=== PATIENT | female | born 1970 | race Caucasian/White ===

== ENCOUNTER 2017-03-16 11:04 | Observation (INO) | payer BC ==
[~2017-03-16 11:04] MED LIST: DEXAMETHASONE SOD PHOSPHATE INJ 4 MG/1 ML VIAL ONE; GLYCOPYRROLATE INJ 0.4 MG/2 ML VIAL ONE; LIDOCAINE 2% INJ-PF (20 MG/ML) 2 ML AMPUL ONE; NEOSTIGMINE METHYLSULFATE 10 MG/10 ML VIAL ONE; ONDANSETRON HCL INJ/PF 4 MG/2 ML SDV ONE; ROCURONIUM BROMIDE INJ 50 MG/5 ML VIAL IV ONE; SUCCINYLCHOLINE CHLORIDE INJ 200 MG/10 ML VIAL ONE
[2017-03-16] MEDS ORDERED: NORMAL SALINE 1000 ML 1,000 ML IV ONE (11:51)
[2017-03-16] MEDS ORDERED: ONDANSETRON HCL INJ/PF 4 MG/2 ML SDV IV ONE ×2 (11:52→13:27)
[2017-03-16] MEDS ORDERED: MORPHINE SULFATE 10 MG/ML INJ IV ONE (11:52)
--- NOTE | 2017-03-16 11:52 | ER Document Report ---
ED Medical Screen (RME) - General Chief Complaint: Abdominal Pain Stated Complaint: ABDOMINAL PAIN Time Seen by Provider: 03/16/17 11:51 Notes: Patient with severe right lower quadrant pain since yesterday. Nausea but no vomiting. No diarrhea. She has had decreased appetite. No previous abdominal surgeries except for a bilateral oophorectomy. TRAVEL OUTSIDE OF THE [place] IN LAST 30 DAYS: No - Related Data Allergies/Adverse Reactions: codeine Allergy (Verified 03/16/17 11:08) Physical Exam - Vital signs Vitals: Temp Pulse Resp BP Pulse Ox 97.4 F 75 14 127/73 H 100 03/16/17 11:17 03/16/17 11:17 03/16/17 11:17 03/16/17 11:17 03/16/17 11:17 Course - Vital Signs Vital signs: Temp Pulse Resp BP Pulse Ox 97.4 F 75 14 127/73 H 100 03/16/17 11:17 03/16/17 11:17 03/16/17 11:17 03/16/17 11:17 03/16/17 11:17
[2017-03-16 12:32] LABS: HEMATOCRIT 47.5 % (36.0-47.0); HEMOGLOBIN 16.6 g/dL (12.0-15.5); MEAN CORPUSCULAR HEMOGLOBIN 31.7 pg (27.0-33.4); MEAN CORPUSCULAR HGB CONC 34.9 g/dL (32.0-36.0); MEAN CORPUSCULAR VOLUME 91 fl (80-97); PLATELET COUNT 314 10^3/uL (150-450); RED BLOOD COUNT 5.23 10^6/uL (3.72-5.28)
[2017-03-16 12:46] LABS: APPEARANCE,URINE SLIGHTLY-CLOUDY; BILIRUBIN,URINE NEGATIVE (NEGATIVE); COLOR,URINE YELLOW; GLUCOSE, URINE NEGATIVE (NEGATIVE); KETONES,URINE 20 mg/dL (NEGATIVE); LEUKOCYTE ESTERASE,URINE SMALL (NEGATIVE); NITRITE,URINE NEGATIVE (NEGATIVE); PROTEIN,URINE 30 mg/dL (NEGATIVE); URINE SPECIFIC GRAVITY 1.029; UROBILINOGEN,URINE NEGATIVE mg/dL (<2.0)
[2017-03-16 12:56] LABS: ABSOLUTE LYMPHOCYTES# (MANUAL) 0.5 10^3/uL (0.5-4.7); ABSOLUTE MONOCYTES # (MANUAL) 1.3 10^3/uL (0.1-1.4); ABSOLUTE NEUTROPHILS# (MANUAL) 23.3 10^3/uL (1.7-8.2); BAND NEUTROPHILS % (MANUAL) 1 % (3-5); BASOPHILS % (MANUAL) 0 % (0-2); EOSINOPHILS % (MANUAL) 0 % (0-6); LYMPHOCYTES % (MANUAL) 2 % (13-45); MONOCYTES % (MANUAL) 5 % (3-13); SEGMENTED NEUTROPHILS % (MAN) 92 % (42-78); TOTAL CELLS COUNTED 100
[2017-03-16 12:57] LABS: PLATELET COMMENT ADEQUATE; RBC MORPHOLOGY COMMENT NORMO-CYTIC/CHROMIC
[2017-03-16 12:58] LABS: ALANINE AMINOTRANSFERASE 33 U/L (9-52); ALKALINE PHOSPHATASE 75 U/L (38-126); ANION GAP 17 (5-19); ASPARTATE AMINO TRANSFERASE 23 U/L (14-36); BILIRUBIN,DIRECT 0.2 mg/dL (0.0-0.4); BILIRUBIN,TOTAL 0.9 mg/dL (0.2-1.3); BLOOD UREA NITROGEN 14 mg/dL (7-20); CARBON DIOXIDE 23 mmol/L (22-30); CHLORIDE 101 mmol/L (98-107); GLUCOSE 116 mg/dL (75-110); LIPASE 31.1 U/L (23-300); POTASSIUM 4.2 mmol/L (3.6-5.0); SODIUM 140.5 mmol/L (137-145); TOTAL PROTEIN 8.4 g/dL (6.3-8.2)
--- NOTE | 2017-03-16 13:19 | ER Document Report ---
ED GI/ - General Chief Complaint: Abdominal Pain Stated Complaint: ABDOMINAL PAIN Time Seen by Provider: 03/16/17 11:51 Notes: The patient is a 46-year-old female, past medical history bilateral oophorectomy , diverticulitis 2 years ago, hypothyroidism, presents with 3 days of periumbilical pain now radiating to her right lower quadrant. She is also having nausea, but has not vomited. She denies fevers, hematuria, dysuria diarrhea, constipation, rash or vaginal discharge. TRAVEL OUTSIDE OF THE [place] IN LAST 30 DAYS: No - Related Data Allergies/Adverse Reactions: codeine Allergy (Verified 03/16/17 11:08) Past Medical History - General Information source: Patient - Social History Smoking Status: Current Some Day Smoker Chew tobacco use (# tins/day): No Frequency of alcohol use: Occasional Drug Abuse: None Family History: Reviewed & Not Pertinent Patient has suicidal ideation: No Patient has homicidal ideation: No Renal/ Medical History: Denies: Hx Peritoneal Dialysis Review of Systems - Review of Systems Notes: REVIEW OF SYSTEMS: CONSTITUTIONAL: -fevers, -chills EENT: -eye pain, -difficulty swallowing, -nasal congestion CARDIOVASCULAR: -chest pain, -syncope. RESPIRATORY: -cough, -SOB GASTROINTESTINAL: +abdominal pain, +nausea, -vomiting, -diarrhea GENITOURINARY: -dysuria, -hematuria MUSCULOSKELETAL: -back pain, -neck pain SKIN: -rash or skin lesions. HEMATOLOGIC: -easy bruising or bleeding. LYMPHATIC: -swollen, enlarged glands. NEUROLOGICAL: -altered mental status or loss of consciousness, -headache, - neurologic symptoms PSYCHIATRIC: -anxiety, -depression. ALL OTHER SYSTEMS REVIEWED AND NEGATIVE. Physical Exam - Vital signs Vitals: Temp Pulse Resp BP Pulse Ox 97.4 F 75 14 127/73 H 100 03/16/17 11:17 03/16/17 11:17 03/16/17 11:17 03/16/17 11:17 03/16/17 11:17 - Notes Notes: PHYSICAL EXAMINATION: GENERAL: Well-appearing, well-nourished and in no acute distress. HEAD: Atraumatic, normocephalic. EYES: Pupils equal round and reactive to light, extraocular movements intact, sclera anicteric, conjunctiva are normal. ENT: nares patent, oropharynx clear without exudates. Moist mucous membranes. NECK: Normal range of motion, supple without lymphadenopathy LUNGS: Breath sounds clear to auscultation bilaterally and equal. No wheezes rales or rhonchi. HEART: Regular rate and rhythm without murmurs ABDOMEN: Soft, moderate RLQ and periumbilical tenderness, normoactive bowel sounds. No guarding, no rebound. No masses appreciated. EXTREMITIES: Normal range of motion, no pitting or edema. No cyanosis. NEUROLOGICAL: Cranial nerves grossly intact. Normal speech, normal gait. Normal sensory and motor exams. PSYCH: Normal mood, normal affect. SKIN: Warm, Dry, normal turgor, no rashes or lesions noted. Course - Re-evaluation Re-evalutation: 46-year-old with 3 days of worsening periumbilical pain now radiating to right lower quadrant. She has a leukocytosis of 25 and nausea. Concern for appendicitis and CT abdomen pelvis obtained. 03/16/17 14:06 CT shows acute appendicitis. Spoke to Dr. Nath and he will be down to see patient. Unasyn started. - Vital Signs Vital signs: Temp Pulse Resp BP Pulse Ox 97.4 F 75 14 127/73 H 100 03/16/17 11:17 03/16/17 11:17 03/16/17 11:17 03/16/17 11:17 03/16/17 11:17 - Laboratory Result Diagrams: 03/16/17 12:15 03/16/17 12:15 Laboratory results interpreted by me: 03/16/17 03/16/17 03/16/17 12:15 12:15 12:15 WBC 25.0 H Hgb 16.6 H Hct 47.5 H Seg Neuts % (Manual) 92 H Band Neutrophils % 1 L Lymphocytes % (Manual) 2 L Abs Neuts (Manual) 23.3 H Glucose 116 H Total Protein 8.4 H Urine Protein 30 H Urine Ketones 20 H Ur Leukocyte Esterase SMALL H - Diagnostic Test Radiology reviewed: Image reviewed, Reports reviewed Radiology results interpreted by me: CT A/P: CT FINDINGS CONSISTENT WITH ACUTE APPENDICITIS. INCIDENTAL DUODENUM DIVERTICULUM IDENTIFIED. ADDITIONAL CHRONIC CHANGES ABOVE. Discharge - Discharge Clinical Impression: Acute appendicitis Qualifiers: Acute appendicitis type: unspecified acute appendicitis type Qualified Code(s) : K35.80 - Unspecified acute appendicitis Condition: Stable Disposition: ADMITTED INPATIENT Admitting Provider: Surgicalist - Pham Unit Admitted: Surgical Floor
[2017-03-16] MEDS ORDERED: KETOROLAC TROMETHAMINE INJ/PF 30 MG/1 ML SDV IV ONE (13:27)
--- NOTE | 2017-03-16 14:02 | RADIOLOGY REPORT (SQ) ---
EXAM DESCRIPTION: CT ABD/PELVIS WITH IV ONLY COMPLETED DATE/TIME: 03/16/2017 1:50 pm REASON FOR STUDY: rlq pain COMPARISON: None. TECHNIQUE: CT scan of the abdomen and pelvis performed using helical scanning technique with dynamic intravenous contrast injection. No oral contrast. Images reviewed with lung, soft tissue, and bone windows. Reconstructed coronal and sagittal MPR images reviewed. Delayed images for evaluation of the urinary system also acquired. All images stored on PACS. All CT scanners at this facility use dose modulation, iterative reconstruction, and/or weight based d osing when appropriate to reduce radiation dose to as low as reasonably achievable (ALARA). [facility]: Dose Right [facility]: CareDose [facility]: Dose Right [facility]: Teradose 4D [facility]: [id number] CONTRAST TYPE AND DOSE: contrast/concentration: Isovue 370.00 mg/ml; Total Contrast Delivered: 71.0 ml; Total Saline Delivered: 66.0 ml RENAL FUNCTION: None required. The patient is less than 50 years old. RADIATION DOSE: CT Rad equipment meets quality standard of care and radiation dose reduction techniq ues were employed. CTDIvol: 6.0 - 8.3 mGy. DLP: 739 mGy-cm.. LIMITATIONS: None. FINDINGS: LOWER CHEST: No significant findings. No nodules or infiltrates. LIVER: Normal size. No masses. No dilated ducts. SPLEEN: Normal size. No focal lesions. PANCREAS: No masses. No significant calcifications. No adjacent inflammation or peripancreatic fluid collections. Pancreatic duct not dilated. GALLBLADDER: No identified stones by CT criteria. No inflammatory changes to suggest cholecystitis. ADRENAL GLANDS: No significant masses or asymmetry. RIGHT KIDNEY AND URETER: No solid masses. No significant calcifications. No hydronephrosis or hyd roureter. LEFT KIDNEY AND URETER: No solid masses. No significant calcifications. No hydronephrosis or hydr oureter. AORTA AND VESSELS: No aneurysm. No dissection. Renal arteries, SMA, celiac without stenosis. RETROPERITONEUM: No retroperitoneal adenopathy, hemorrhage or masses. BOWEL AND PERITONEAL CAVITY: Duodenal diverticulum. No masses or inflammatory changes. No free fluid or peritoneal masses. APPENDIX: Fluid distended with mural thickening and surrounding inflammation measuring up to 12 mm as seen on series 601, image 32 compatible with appendicitis. No evidence of perforation. PELVIS: No mass. Mild free fluid. Normal bladder. ABDOMINAL WALL: No masses. No hernias. BONES: Degenerative disc disease most notable at L4-L5. No fracture or suspicious osseous lesion. OTHER: No other significant finding. IMPRESSION: CT FINDINGS CONSISTENT WITH ACUTE APPENDICITIS. INCIDENTAL DUODENUM DIVERTICULUM IDENTIFIED. ADDITIONAL CHRONIC CHANGES ABOVE. TECHNICAL DOCUMENTATION: JOB ID: [id number] Quality ID # [id number]: Final reports with documentation of one or more dose reduction techniques (e.g., Au tomated exposure control, adjustment of the mA and/or kV according to patient size, use of iterative reconstruction technique) 2010 [employer]- All Rights Reserved
[2017-03-16] MEDS ORDERED: AMPICILLIN SOD/SULBACTAM 3 GM VIAL IV ONE (14:08)
--- NOTE | 2017-03-16 15:09 | HISTORY AND PHYSICAL E ---
History and Physical NAME: JORGE LINDQUIST : 1970 AGE: 46Y ADMITTED: 03/16/2017 ROOM: ED07 CHIEF COMPLAINT: Abdominal pains. HISTORY OF PRESENT ILLNESS: This is a 46-year-old female complaining of vague epigastric pains about 2 days ago. The next day, yesterday, the patient's pains got worse around 3. The patient this morning apparently had more pains with nausea and went to the ED where abdominal CT scan showed acute appendicitis. PAST HISTORY: History of removal of the right ovary and right tube, this was done laparoscopic. FAMILY HISTORY: Father recently diagnosed to have leukemia a year ago and mother has ITP. SOCIAL HISTORY: Smokes about 1-2 cigarettes a day and stopped smoking about a week ago. Drinks socially. Denies recreational drug use. ALLERGIES: CODEINE. PHYSICAL EXAMINATION: GENERAL: Well-developed, well-nourished 46-year-old female alert and oriented, complaining of abdominal pain. HEENT: Neck is supple, no thyromegaly. LUNGS: Clear. HEART: Regular sinus rhythm. ABDOMEN: Soft and tender in the right lower quadrant. No definite rebound. EXTREMITIES: No edema. LABORATORY DATA: Her white count is elevated. IMPRESSION: Acute appendicitis. PLAN: Patient for laparoscopic appendectomy. Started her already on Unasyn IV antibiotic by ER physician. DICTATING PHYSICIAN: MANDEEP YOUNG M.D. [id number] PHY#: [id number] ID: [id number] JOB#: [id number] ACCT: [id number] cc:MANDEEP YOUNG M.D. >
[2017-03-16] MEDS ORDERED: FENTANYL CITRATE INJ/PF 100 MCG/2 ML AMPUL ONE ×2 (15:28)
[2017-03-16] MEDS ORDERED: PROPOFOL INJ 200 MG/20 ML VIAL IV ONE (15:29)
[2017-03-16] MEDS ORDERED: MIDAZOLAM 2 MG/2 ML INJ ONE ×2 (15:29→15:52)
[2017-03-16] MEDS ORDERED: HYDROMORPHONE HCL INJ/PF 2 MG/ML AMPULE ONE (15:30)
[2017-03-16] MEDS ORDERED: BUPIVACAINE HCL 0.25 % INJ/PF (2.5 MG/1 ML) 30 ML VIAL ONE (15:50)
[2017-03-16] MEDS ORDERED: MORPHINE SULFATE 10 MG/ML INJ IV PRN (16:38)
[2017-03-16] MEDS ORDERED: PROMETHAZINE HCL INJ 25 MG/1 ML VIAL IV PRN (16:38)
[2017-03-16] MEDS ORDERED: FENTANYL CITRATE INJ/PF 100 MCG/2 ML AMPUL IV PRN ×3 (16:38)
[2017-03-16] MEDS ORDERED: DIPHENHYDRAMINE HCL 50 MG/ML VIAL IV PRN (16:38)
--- NOTE | 2017-03-16 18:03 | OPERATIVE REPORT E ---
Operative Report NAME: JORGE LINDQUIST : 1970 AGE: 46Y DATE OF SURGERY: 03/16/2017 ROOM: ED07 PREOPERATIVE DIAGNOSIS: ACUTE APPENDICITIS. POSTOPERATIVE DIAGNOSIS: ACUTE APPENDICITIS. OPERATION: Laparoscopic appendectomy. SURGEON: MANDEEP YOUNG M.D. ANESTHESIA: General. INDICATIONS: This is a 46-year-old female with complaint of epigastric pains about 36 hours ago. Yesterday afternoon, the pains got worse and then patient went to the emergency room early this morning, where a CAT scan of the abdomen revealed acute appendicitis. PROCEDURE: After adequate general anesthesia, patient was placed in supine position, and the abdomen prepped and draped in the usual sterile fashion. Appropriate timeout was called. Next, infraumbilical incision made and fascia identified and lifted up with 2 Emiliano clamps and divided between the clamps. Abdominal cavity was then entered and I was able to put my finger into some finger dissection, because patient had a previous laparoscopic [employer]PUT[employer] procedure done in the past. Next, a Joann trocar was inserted and CO2 insufflated to a pressure of 15 mmHg. Two other trocars were placed; a 5-mm suprapubic and a 12-mm in the left lower quadrant, done under direct vision with the camera. Next, appendix was identified and noted to be inflamed. The mesoappendix was subsequently serially cauterized and divided with the use of Harmonic marc. This was done close to the cecum. The appendix was then divided with an Endo CHRISTINA. Appendiceal specimen was then pulled up in an Endo bag through the umbilical port. Next, inspection of the stump showed no evidence of bleeding. However, the medial part appeared to be somewhat dusky here. Because of this, this part of the appendix was then further divided with an Endo CHRISTINA very close to the cecum. Following this, there was some oozing noted, and this was controlled with Hemoclips and a small piece of Surgicel was then placed for better hemostasis. Next, the omental fat was then placed over the appendiceal stump. Most of the irrigation was then suctioned out. The rest of the abdomen was unremarkable on visual inspection. Next, the fascial defect in the infraumbilical area was then closed with a [id number] suture using 0 Vicryl and all the skin incisions closed with running subcuticular closure using 4-0 Vicryl undyed. Sterile Dermabond was used as a dressing. Patient tolerated procedure well. Needle, instrument and sponge counts were all correct. Estimated blood loss was about 5 mL. Patient then brought to the recovery room in satisfactory condition. DICTATING PHYSICIAN: MANDEEP YOUNG M.D. [id number] PHY#: [id number] ID: [id number] JOB#: [id number] ACCT: [id number] cc:MANDEEP YOUNG M.D. >
[2017-03-16] MEDS ORDERED: OXYCODONE-ACETAMINOPHEN 5-325 MG TABLET PO PRN (18:30)
[2017-03-16] MEDS ORDERED: ONDANSETRON HCL INJ/PF 4 MG/2 ML SDV IV PRN (18:31)
[2017-03-16] MEDS ORDERED: AMPICILLIN SODIUM/SULBACTAM NA 3 GM in NORMAL SALINE 100 ML IV ONE (19:30)
[2017-03-16] MEDS: MORPHINE SULFATE 10 MG/ML INJ IV PRN (20:08)
[2017-03-17] MEDS ORDERED: AMPICILLIN SODIUM/SULBACTAM NA 3 GM in NORMAL SALINE 100 ML IV SCH ×2
[2017-03-17] MEDS: AMPICILLIN SODIUM/SULBACTAM NA 3 GM in NORMAL SALINE 100 ML IV SCH ×4 (02:29→21:34)
[2017-03-17] MEDS: NORMAL SALINE 1000 ML 1,000 ML IV PRN ×3 (05:13→17:39)
[2017-03-17 06:55] LABS: ABSOLUTE BASOPHILS # (AUTO) 0.1 10^3/uL (0.0-0.2); ABSOLUTE LYMPHOCYTES (AUTO) 1.5 10^3/uL (0.5-4.7); ABSOLUTE MONOCYTES (AUTO) 1.1 10^3/uL (0.1-1.4); ABSOLUTE NEUT (AUTO) 14.8 10^3/uL (1.7-8.2); BASOPHILS % (AUTO) 0.4 % (0-2); HEMATOCRIT 34.8 % (36.0-47.0); LYMPHOCYTES % (AUTO) 8.8 % (13-45); MEAN CORPUSCULAR HEMOGLOBIN 31.3 pg (27.0-33.4); MEAN CORPUSCULAR HGB CONC 34.3 g/dL (32.0-36.0); MEAN CORPUSCULAR VOLUME 91 fl (80-97); MONOCYTES % (AUTO) 6.5 % (3-13); PLATELET COUNT 212 10^3/uL (150-450); RED BLOOD COUNT 3.82 10^6/uL (3.72-5.28); RED CELL DISTRIBUTION WIDTH 12.2 % (11.5-14.0); SEGMENTED NEUTROPHILS % (AUTO) 84.3 % (42-78); TOTAL CELLS COUNTED % (AUTO) 100 %; WHITE BLOOD COUNT 17.5 10^3/uL (4.0-10.5)
[2017-03-17 06:57] LABS: HEMOGLOBIN 11.9 g/dL (12.0-15.5)
[2017-03-17] MEDS: MORPHINE SULFATE 10 MG/ML INJ IV PRN (08:57)
--- NOTE | 2017-03-17 18:02 | PDOC PROGRESS REPORT ---
Subjective Progress Note for:: 03/17/17 Subjective:: Feels bloated but tolerating clears Reason For Visit: APPY Physical Exam Vital Signs: Temp Pulse Resp BP Pulse Ox 97.6 F 63 16 125/62 100 03/17/17 11:45 03/17/17 16:19 03/17/17 16:19 03/17/17 16:19 03/17/17 16:19 Intake & Output 03/16/17 03/17/17 03/18/17 06:59 06:59 06:59 Intake Total 2290 Output Total 305 Balance 1985 Weight 65.1 kg Exam: Abdomen soft with mild distention primarily at the lower half . Minimal tenderness. Results Laboratory Results: 03/17/17 06:26 03/17/17 06:26 WBC 17.5 H RBC 3.82 Hgb 11.9 L D Hct 34.8 L MCV 91 MCH 31.3 MCHC 34.3 RDW 12.2 Plt Count 212 Seg Neutrophils % 84.3 H Lymphocytes % 8.8 L Monocytes % 6.5 Eosinophils % 0.0 Basophils % 0.4 Absolute Neutrophils 14.8 H Absolute Lymphocytes 1.5 Absolute Monocytes 1.1 Absolute Eosinophils 0.0 Absolute Basophils 0.1 Impressions: Abdomen/Pelvis CT 03/16/17 11:52 IMPRESSION: CT FINDINGS CONSISTENT WITH ACUTE APPENDICITIS. INCIDENTAL DUODENUM DIVERTICULUM IDENTIFIED. ADDITIONAL CHRONIC CHANGES ABOVE. Assessment & Plan - Time Time Spent with patient: 15-24 minutes - Plan Summary Plan Summary: WBC still elevated to 17,000 though decreased from pre-op of 24,000 Continue IV antibiotics. Gradually increase po intake Repeat CBC in am and if continues to trend down and pt clinically better then possible discharge
[2017-03-17] MEDS: OXYCODONE-ACETAMINOPHEN 5-325 MG TABLET PO PRN (18:47)
[2017-03-17] MEDS: ONDANSETRON 4 MG TAB.RAPDIS PO PRN (18:48)
[2017-03-18] MEDS: AMPICILLIN SODIUM/SULBACTAM NA 3 GM in NORMAL SALINE 100 ML IV SCH ×2 (03:20→09:32)
[2017-03-18] MEDS: ONDANSETRON 4 MG TAB.RAPDIS PO PRN (03:22)
[2017-03-18] MEDS: OXYCODONE-ACETAMINOPHEN 5-325 MG TABLET PO PRN ×2 (03:23→11:11)
[2017-03-18 06:50] LABS: HEMATOCRIT 32.5 % (36.0-47.0); HEMOGLOBIN 11.3 g/dL (12.0-15.5); MEAN CORPUSCULAR HEMOGLOBIN 32.1 pg (27.0-33.4); MEAN CORPUSCULAR HGB CONC 34.8 g/dL (32.0-36.0); MEAN CORPUSCULAR VOLUME 92 fl (80-97); PLATELET COUNT 191 10^3/uL (150-450); RED BLOOD COUNT 3.53 10^6/uL (3.72-5.28); WHITE BLOOD COUNT 12.4 10^3/uL (4.0-10.5)
--- NOTE | 2017-03-18 13:42 | PDOC DISCHARGE SUMMARY ---
Discharge Summary (SDC) - Discharge Final Diagnosis: Acute appendicitis Date of Surgery: 03/16/17 - lap appendectomy Discharge Date: 03/18/17 Condition: Stable Prescriptions: Ondansetron [Zofran Odt 4 mg Tablet] 4 mg PO Q6HP PRN #10 tab.rapdis PRN Reason: Oxycodone HCl/Acetaminophen [Percocet 5-325 mg Tablet] 1 tab PO Q6HP PRN #10 tablet PRN Reason: Referrals: [facility] [Provider Group] - 03/31/17 8:30 am (Please follow up at [facility] on 03/31/17 at 8:30 am. If you have any questions or need to reschedule please call the office directly at .)
[2017-03-18 15:11] VITALS: BP 119/55
[2017-03-18] MEDS ORDERED: FLUCONAZOLE 100 MG TABLET PO ONE (16:00)
== END 2017-03-18 16:13 | disposition home or self-care (01) ==
LOC: ER 11:04 → INTOOBSV 14:41 → EH 14:41 → 2S 18:00
PROVIDERS: ADMIT Surgery; ATTEND Surgery
PROC: 0DTJ4ZZ Resection of Appendix, Percutaneous Endoscopic Approach (ICD-10-PCS; principal; 2017-03-16 15:00)
DX: K35.3 Acute appendicitis with localized peritonitis (principal); Z87.891 Personal history of nicotine dependence; Z90.721 Acquired absence of ovaries, unilateral; Z90.79 Acquired absence of other genital organ(s); Z88.6 Allergy status to analgesic agent; Z87.19 Personal history of other diseases of the digestive system
CPT/HCPCS: 96376; 99285; 96361; 96375; 96365; 36415 ×3; 83690; 85025 ×2; 85027; 81025; 80053; 81001; 88304 ×2; 74177; 44970; J2250; J3490 ×2; J1100; S0119 ×2; J3010; J0295 ×3; J1885; J2270 ×2; J0330; J2405 ×2; J7030 ×2; J2704; 840; J1170